=== PATIENT | male | born 1985 | race Caucasian/White ===

== ENCOUNTER 2017-10-22 07:05 | Emergency (ER) | payer SELFPAY ==
[~2017-10-22] VITALS: Ht 177.8 cm; Wt 70.3 kg
[2017-10-22 07:17] VITALS: BP 141/99
[2017-10-22] MEDS ORDERED: TETRACAINE 0.5% OPHTH SOLUTION 4ML BOTTLE. ONE (07:25)
[2017-10-22] MEDS ORDERED: FLUORESCEIN 1MG EYE STRIP. ONE (07:25)
[2017-10-22] MEDS ORDERED: FLUORESCEIN 1MG EYE STRIP. OD ONE (07:30)
[2017-10-22] MEDS ORDERED: TETRACAINE 0.5% OPHTH SOLUTION 4ML BOTTLE. OD ONE (07:30)
[2017-10-22] MEDS ORDERED: OFLO5DRO RIGHTEYE (07:44)
--- NOTE | 2017-10-22 07:45 | PHYS DOC ---
Past History Past Medical History: No Pertinent History Past Surgical History: No Surgical History Alcohol Use: None Drug Use: None Adult General Chief Complaint Chief Complaint: FOREIGN BODY/EYES HPI HPI 32-year-old male patient complaining of right pain and from the sensation in the middle of night. Patient states he worked outside yesterday and maybe he had metal foreign body in his right eye. Patient denies change of his lesion, nausea vomiting, fever and chills, headache. Patient wearing eyeglasses. Review of Systems Review of Systems Constitutional: Denies fever or chills [] Eyes: Denies change in visual acuity, reports redness, eye pain [] HENT: Denies nasal congestion or sore throat [] Respiratory: Denies cough or shortness of breath [] Cardiovascular: No additional information not addressed in HPI [] GI: Denies abdominal pain, nausea, vomiting, bloody stools or diarrhea [] : Denies dysuria or hematuria [] Musculoskeletal: Denies back pain or joint pain [] Integument: Denies rash or skin lesions [] Neurologic: Denies headache, focal weakness or sensory changes [] Endocrine: Denies polyuria or polydipsia [] All other systems were reviewed and found to be within normal limits, except as documented in this note. Current Medications Current Medications Current Medications Medications (Trade) Dose Ordered Sig/[facility] Start Time Stop Time Status Last Admin Dose Admin Fluorescein Sodium (Ful-Brittany 1mg) 1 strip 1X ONCE 10/22/17 07:30 10/22/17 07:32 DC 10/22/17 07:30 1 STRIP Tetracaine HCl (Tetracaine) 1 drop 1X ONCE 10/22/17 07:30 10/22/17 07:32 DC 10/22/17 07:30 1 DROP Allergies Allergies Allergies Coded Allergies Type Severity Reaction Last Updated Verified No Known Drug Allergies 10/22/17 No Physical Exam Physical Exam Constitutional: Well developed, well nourished, mild distress, non-toxic appearance. [] HENT: Normocephalic, atraumatic, bilateral external ears normal, oropharynx moist, no oral exudates, nose normal. [] Eyes: PERRLA, EOMI, conjunctival hemorrhage right side, negative fluorescein test for foreign body or corneal abrasion, mild scleral abrasion in lateral side of right eye, no discharge. [] Neck: Normal range of motion, no tenderness, supple, no stridor. [] Cardiovascular:Heart rate regular rhythm, no murmur [] Lungs & Thorax: Bilateral breath sounds clear to auscultation [] Neurologic: Alert and oriented X 3, normal motor function, normal sensory function, no focal deficits noted. [] Psychologic: Affect normal, judgement normal, mood normal. [] Current Patient Data Vital Signs Vital Signs Date Time Temp Pulse Resp B/P (MAP) Pulse Ox O2 Delivery O2 Flow Rate FiO2 10/22/17 07:17 98.1 77 16 100 Room Air EKG EKG [] Radiology/Procedures Radiology/Procedures [] Course & Med Decision Making Course & Med Decision Making Evaluation of patient in ER showed 32-year-old male patient with right eye pain and foreign body sensation the patient did not have foreign body or corneal abrasion. 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 Dragon Disclaimer Dragon Disclaimer This electronic medical record was generated, in whole or in part, using a voice recognition dictation system. Departure Departure: Impression: Primary Impression: Sensation of foreign body in eye Disposition: 01 HOME, SELF-CARE (At 0741) Condition: IMPROVED Referrals: KYARA BRINK MD (PCP) Patient Instructions: Eye - Corneal Foreign Body Additional Instructions: Follow-up with your eye doctor today for evaluation of possible foreign body of right eye Scripts Ofloxacin (OCUFLOX) 5 Ml Drops 1-2 DROP RIGHTEYE QID for 7 Days, #1 BOTTLE Prov: MAYRA BLAND MD 10/22/17 MAYRA BLAND MD Oct 22, 2017 07:45
== END 2017-10-22 07:49 | disposition home or self-care (01) ==
LOC: ER 07:05
DX: S05.01XA Injury of conjunctiva and corneal abrasion without foreign body, right eye, initial encounter (principal); X58.XXXA Exposure to other specified factors, initial encounter; Y93.89 Activity, other specified; Y99.8 Other external cause status; Y92.89 Other specified places as the place of occurrence of the external cause
CPT/HCPCS: 99283

== ENCOUNTER 2022-02-23 23:06 | Emergency (ER) | payer BC, OTHER ==
[~2022-02-23] VITALS: Ht 177.8 cm; Wt 80.0 kg
[~2022-02-23 23:06] MED LIST: OFLO5DRO RIGHTEYE
[2022-02-23] MEDS: IV RINGERS SOLUTION,LACTATED 1,000 ML IV SCH (23:45)
--- NOTE | 2022-02-24 00:02 | PHYS DOC ---
Past History Past Medical History: No Pertinent History Past Surgical History: No Surgical History Alcohol Use: None Drug Use: None Social History Narrative: PT DENIES ALTHOUGH HE BECAME RESPONSIVE AFTER NARCAN WAS ADMINISTERED General Adult EDM: Chief Complaint: ALTERED MENTAL STATUS HPI: HPI: ".. I was doing some street Percocet... I guess it must of been fentanyl.. I dont remember what happen... can you do some for my shoulder.. is it boke...".. " The last thing I remember was helping my cousin to move..." Patient is a 36 year old male who presents with hx. of being found unconscious in a [employer] truck. Patient was given 2 mg of Narcan. And regained consciousness. Pt. did have some tonic seizures prior to the Narcan.. Apparently somewhere in his removal from the [employer] truck, seizure and the arrival to the emergency department patient had developed a left shoulder dislocation. Patient denies any past history of shoulder dislocations. Patient denies any other significant medical history. Patient does admit to taking street Percocet recreationally tonight. No recent travel. No specific ill contacts. No history immunosuppression. Distal sensation in left hand decreased and capillary refill is delayed as compared to right hand.. Has followed with Dr. Brink in the past. Review of Systems: Review of Systems: Constitutional: Denies fever or chills Eyes: Denies change in visual acuity HENT: Denies nasal congestion or sore throat Respiratory: Denies cough or shortness of breath Cardiovascular: Denies chest pain or edema GI: Denies abdominal pain, nausea, vomiting, bloody stools or diarrhea : Denies dysuria Musculoskeletal: Complains of left shoulder pain Integument: Denies rash Neurologic: Denies headache, focal weakness or sensory changes Endocrine: Denies polyuria or polydipsia Lymphatic: Denies swollen glands Psychiatric: Denies depression or anxiety Family History: Family History: Noncontributory to presentation Current Medications: Current Meds: Current Medications Medications (Trade) Dose Ordered Sig/Robin Start Time Stop Time Status Last Admin Dose Admin Lactated Ringer's 1,000 ml @ 1,000 mls/hr Q1H 02/23/22 23:15 02/23/22 23:45 1,000 MLS/HR Allergies: Allergies: Allergies Coded Allergies Type Severity Reaction Last Updated Verified No Known Drug Allergies 10/22/17 No Physical Exam: PE: Constitutional: Moderate acute distress, non-toxic appearance. [] HENT: Normocephalic, atraumatic, bilateral external ears normal, oropharynx moist, no oral exudates, nose normal. [] Eyes: PERRLA, EOMI, conjunctiva normal, no discharge. [] Neck: Normal range of motion, no tenderness, supple, no stridor. [] Cardiovascular: Tachycardia heart rate regular rhythm, no murmur [] bedside monitor shows a sinus tachycardia in the 120s with left axis changes. Lungs & Thorax: Bilateral breath sounds equal at apex with some rhonchi over right lung madrid auscultation [] Abdomen: Bowel sounds creased, soft, no tenderness, no masses, no pulsatile masses. [] Skin: Warm, dry, no erythema, no rash. Tattoos Back: No tenderness, no CVA tenderness. [] Extremities: Left shoulder shoulder tenderness, no cyanosis, no clubbing, ROM limited and left shoulder, no edema. [] Neurologic: Alert and oriented X 3, moves all extremities except left arm because of shoulder dislocation,, does have decreased sensation in left hand. Psychologic: Affect anxious, judgement normal, mood normal. [] Current Patient Data: Vital Signs: Vital Signs Date Time Temp Pulse Resp B/P (MAP) Pulse Ox O2 Delivery O2 Flow Rate FiO2 02/23/22 23:15 97.8 114 30 140/88 (105) 98 Room Air EKG: EKG: My interpretation EKG shows a sinus tachycardia 118 bpm. There is some left axis changes. Some anterior lateral changes but no findings of acute STEMI of contralateral changes would consider this however abnormal EKG time of EKG was 2332 hrs. [] Radiology/Procedures: Radiology/Procedures: [address] [address] IMAGING REPORT Signed PATIENT: DIONTE MESA AACCOUNT: [id number] : 1985 LOCATION: ER AGE: 36 SEX: M EXAM STATUS: REG ER ORD. PHYSICIAN: IGOR GASTON MD REASON: shoulder injury- pulled out truck, MS change, seizure PROCEDURE: PORTABLE CHEST 1V Study: XR CHEST 1V Indication: Shoulder injury. Comparison: None. Findings: Mild asymmetric elevation of the left hemidiaphragm. There is a component of basilar atelectasis. The cardiomediastinal silhouette is within normal limits for size. Symmetric jose a. No layering effusion, pneumothorax or lobar consolidation. Left shoulder dislocation discussed separately. Impression: 1. Mild asymmetric elevation of the left hemidiaphragm and mild bibasilar volume loss. 2. Dislocated left shoulder. Electronically signed by: ROSAS NERI MD (02/24/2022 12:27 AM) [facility] DI[facility] AND SIGNED BY: ROSAS NERI MD DATE: 02/24/2225 CC: IGOR GASTON MD; KYARA BRINK MD ~ [[address] [address] IMAGING REPORT Signed PATIENT: DIONTE MESA AACCOUNT: [id number] : 1985 LOCATION: ER AGE: 36 SEX: M EXAM STATUS: REG ER ORD. PHYSICIAN: IGOR GASTON MD REASON: shoulder injury- pulled out truck, MS change, seizure PROCEDURE: SHOULDER 2+V LEFT Study: XR SHOULDER_LEFT 2+ VIEWS Indication: Shoulder injury. Comparison: None. Findings: Anterior shoulder dislocation on the left. Probable Hill-Sachs impaction deformity. Limited assessment of the anterior/inferior glenoid. Mild glenohumeral arthrosis. No malalignment at the acromioclavicular joint. Impression: Presumed anterior shoulder dislocation on the left considering the absence of a lateral view. Better assessment for associated fractures on post reduction imaging. Mild glenohumeral arthrosis. Electronically signed by: ROSAS NERI MD (02/24/2022 12:29 AM) [facility] DI[facility] AND SIGNED BY: ROSAS NERI MD DATE: 02/24/2226 CC: IGOR GASTON MD; KYARA BRINK MD ~ ][address] [address] IMAGING REPORT Signed PATIENT: DIONTE MESA AACCOUNT: [id number] : 1985 LOCATION: ER AGE: 36 SEX: M EXAM STATUS: REG ER ORD. PHYSICIAN: IGOR GASTON MD REASON: post reduction PROCEDURE: SHOULDER LEFT 1V Study: XR LT SHOULDER 1 VIEW Indication: Postreduction. Comparison: 02/23/2022 Findings/ Impression: The left shoulder dislocation has been reduced. Hill-Sachs impaction deformity of uncertain acuity especially if there is a history of previous dislocations. No large glenoid fracture is apparent on the single obtained view. Unremarkable AC joint. Electronically signed by: ROSAS NERI MD (02/24/2022 2:16 AM) [facility] DICTATED AND SIGNED BY: ROSAS NERI MD DATE: 02/24/22213 CC: IGOR GASTON MD; KYARA BRINK MD ~ Heart Score: C/O Chest Pain: No HEART Score for Chest Pain: HEART Score for Chest Pain Response (Comments) Value History Slighlty/Non-Suspicious 0 ECG Nonspecific Repolarizatio 1 Age < 45 0 Risk Factors 1 or 2 Risk Factors 1 Troponin < Normal Limit 0 Total 2 Risk Factors: Risk Factors: DM, Current or recent (<one month) smoker, HTN, HLP, family history of CAD, obesity. Risk Scores: Score 0 - 3: 2.5% MACE over next 6 weeks - Discharge Home Score 4 - 6: 20.3% MACE over next 6 weeks - Admit for Clinical Observation Score 7 - 10: 72.7% MACE over next 6 weeks - Early Invasive Strategies Course & Med Decision Making: Course & Med Decision Making Pertinent Labs and Imaging studies reviewed. (See chart for details) Patient had procedural sedation with propofol. See flow sheet in procedure note. Shoulder was reduced with gentle traction and then placing an sling and swath. Patient to follow-up with [facility] Ortho or Ortho of choice. Ice packs as needed. Tylenol and ibuprofen. Encourage patient avoid use of street drugs. Patient follow-up with primary care. Patient return if any concerns. LEMON- Rivera, 3/3/2, Mallampati 1, ASA1 to II, Hx. recreation OD on Street Percocet ( Suspect Fentanyl),Seizure episode. Impression: 1. Narcotic overdose-use of street Percocets 2. Left shoulder dislocation and Hill-Sachs fracture 3. Leukocytosis 16.3 4. Mild hypokalemia 3.4 5. Elevated CK 470 6. Tonic Clonic Seizure [See flow sheet for total amount of propofol given for procedural sedation. Dragon Disclaimer: Dragon Disclaimer: This electronic medical record was generated, in whole or in part, using a voice recognition dictation system. Departure Departure: Referrals: KYARA BRINK MD (PCP) Procedural Sedation Proc Sed Indication: Left shoulder dislocation Consent: See consent. Risk and benefits discussed with patient patient agreeable to procedure exhibits [facility] capacity Physician Involvement: The attending physician was present and supervising this procedure. Pre-Sedation Documentation and Exam: None-note patient had been using street Percocet Airway Assessment: Mallampati 1 Prior History of Anesthesia Complications: None ASA Classification: 1-2 -recreational use of street narcotics Sedation/ Anesthesia Plan: Patient received small increments of propofol-patient received a total of Medications Used: Propofol Monitoring and Safety: The patient was placed on a quality assurance monitor and vital signs, pulse oximetry and level of consciousness were continuously evaluated throughout the procedure. The patient was closely monitored until recovery from the medications was complete and the patient had returned to baseline status. Respiratory therapy was on standby at all times during the procedure. (The following sections must be completed) Post-Sedation Vital Signs: [EDM.VS] see flowsheet Post-Sedation Exam: Return to baseline Complications: None Vital Signs Vital Signs Date Time Temp Pulse Resp B/P (MAP) Pulse Ox O2 Delivery O2 Flow Rate FiO2 02/24/22 02:35 102 20 142/99 (113) 98 Room Air 02/24/22 00:57 2.0 02/23/22 23:15 97.8 Dragon Disclaimer This chart was dictated in whole or in part using Voice Recognition software in a busy, high-work load, and often noisy Emergency Department environment. It may contain unintended and wholly unrecognized errors or omissions. IGOR GASTON MD Feb 24, 2022 00:01
[2022-02-24 00:03] LABS: BASO % 0 % (0-3); EOS # 0.2 x10^3/uL (0.0-0.7); EOS % 1 % (0-3); HEMATOCRIT 42.5 % (39.0-53.0); HEMOGLOBIN 14.6 g/dL (13.0-17.5); LYMPH # 1.7 x10^3/uL (1.0-4.8); LYMPH % 10 % (24-48); MEAN CORPUSCULAR HEMOGLOBIN 32 pg (25-35); MEAN CORPUSCULAR HGB CONC 34 g/dL (31-37); MEAN CORPUSCULAR VOLUME 93 fL (79-100); MONO # 0.8 x10^3/uL (0.0-1.1); MONO % 5 % (0-9); NEUT # 13.6 x10^3uL (1.8-7.7); NEUT % 83 % (31-73); PLATELET COUNT 232 x10^3/uL (140-400); RED CELL DISTRIBUTION WIDTH 12.7 % (11.5-14.5); WHITE BLOOD COUNT 16.3 x10^3/uL (4.0-11.0)
--- NOTE | 2022-02-24 00:04 | EKG ---
[address] [address] Test Date: 2022-02-23 Test Time: 23:32:37 Pat Name: DIONTE MESA Department: Room: Gender: M Advertising Executive: : 1985 Requested By: IGOR GASTON Order Number: [id number] Reading MD: Pepito Livingston Measurements Intervals [place] Rate: 118 P: 42 MI: 138 QRS: -1 QRSD: 90 T: 36 QT: 330 QTc: 465 Interpretive Statements SINUS TACHYCARDIA Electronically Signed On 02-27-2022 17:29:52 CDT by Pepito Livingston
[2022-02-24 00:15] LABS: CALCIUM 8.8 mg/dL (8.5-10.1); CREATININE 1.2 mg/dL (0.7-1.3); GFR 68.5; POTASSIUM 3.4 mmol/L (3.5-5.1)
[2022-02-24] MEDS: IV RINGERS SOLUTION,LACTATED 1,000 ML IV SCH ×2 (00:15→01:15)
[2022-02-24 00:29] LABS: MAGNESIUM 2.3 mg/dL (1.8-2.4)
[2022-02-24] MEDS ORDERED: PROPOFOL 20 ML IV ONE (00:30)
--- NOTE | 2022-02-24 00:30 | RAD ---
Study: XR CHEST 1V Indication: Shoulder injury. Comparison: None. Findings: Mild asymmetric elevation of the left hemidiaphragm. There is a component of basilar atelectasis. The cardiomediastinal silhouette is within normal limits for size. Symmetric jose a. No layering effusion, pneumothorax or lobar consolidation. Left shoulder dislocation discussed separately. Impression: 1. Mild asymmetric elevation of the left hemidiaphragm and mild bibasilar volume loss. 2. Dislocated left shoulder. Electronically signed by: ROSAS NERI MD (02/24/2022 12:27 AM) [facility]
--- NOTE | 2022-02-24 00:31 | RAD ---
Study: XR SHOULDER_LEFT 2+ VIEWS Indication: Shoulder injury. Comparison: None. Findings: Anterior shoulder dislocation on the left. Probable Hill-Sachs impaction deformity. Limited assessmen t of the anterior/inferior glenoid. Mild glenohumeral arthrosis. No malalignment at the acromioclavic ular joint. Impression: Presumed anterior shoulder dislocation on the left considering the absence of a lateral view. Better assessment for associated fractures on post reduction imaging. Mild glenohumeral arthrosis. Electronically signed by: ROSAS NERI MD (02/24/2022 12:29 AM) [facility]
[2022-02-24 01:35] LABS: % BANDS 1 % (0-9); % EOS 1 % (0-5); % LYMPHS 30 % (24-48); % MONOS 2 % (0-10); % SEGS 66 % (35-66)
[2022-02-24 01:38] LABS: PLT ESTIMATE ADEQUATE (ADEQUATE)
[2022-02-24] MEDS ORDERED: IV RINGERS SOLUTION,LACTATED 1,000 ML IV ONE (02:00)
--- NOTE | 2022-02-24 02:18 | RAD ---
Study: XR LT SHOULDER 1 VIEW Indication: Postreduction. Comparison: 02/23/2022 Findings/ Impression: The left shoulder dislocation has been reduced. Hill-Sachs impaction deformity of uncertain acuity es pecially if there is a history of previous dislocations. No large glenoid fracture is apparent on the single obtained view. Unremarkable AC joint. Electronically signed by: ROSAS NERI MD (02/24/2022 2:16 AM) [facility]
[2022-02-24 02:35] VITALS: BP 142/99
[2022-02-24 03:10] LABS: BARBITURATES NEG (NEG); BENZODIAZEPINES NEG (NEG); CANNABINOIDS NEG (NEG); COCAINE NEG (NEG); METHADONE NEG (NEG); OPIATES NEG (NEG); PHENCYCLIDINE NEG (NEG)
[2022-02-24 03:11] LABS: AMPHETAMINE/METHAMPHETAMINE NEG (NEG)
[2022-02-24 03:27] LABS: BACTERIA,URINE FEW /HPF (0-FEW); CLARITY,URINE CLEAR; COLOR,URINE YELLOW; GLUCOSE,URINE 100 mg/dL (NEG); NITRITE,URINE NEG (NEG); RBC,URINE 0 /HPF (0-2); SQUAMOUS EPITHELIAL CELL,UR OCC /LPF; UROBILINOGEN,URINE 0.2 mg/dL (0.2 mg/dL); WBC,URINE 0 /HPF (0-4)
== END 2022-02-24 02:41 | disposition home or self-care (01) ==
LOC: ER 23:06
DX: S43.005A Unspecified dislocation of left shoulder joint, initial encounter (principal); T40.601A Poisoning by unspecified narcotics, accidental (unintentional), initial encounter; D72.829 Elevated white blood cell count, unspecified; E87.6 Hypokalemia; R74.8 Abnormal levels of other serum enzymes; R56.9 Unspecified convulsions; X58.XXXA Exposure to other specified factors, initial encounter; Y93.89 Activity, other specified; Y92.89 Other specified places as the place of occurrence of the external cause; Y99.8 Other external cause status; Y92.9 Unspecified place or not applicable
CPT/HCPCS: 23650; 36415; 71045; 73020; 73030; 80048; 80307; 81001; 82550; 83735; 83880; 84484; 85007; 85025; 85610; 85730; 93005; 96360; 99152; J2704; J7120; 99285-25